=== PATIENT | female | born 1940 | race Caucasian/White ===

== ENCOUNTER 2016-12-01 11:35 | Emergency (ER) | payer MEDICARE, BC ==
[~2016-12-01 11:35] MED LIST: CALCIUM1 TAB.CHEW PO; MULTI VITAMIN1 EACH PO; PHENERGAN25 MG PO; VICODIN 5/1 TAB 5/50 PO
== END 2016-12-01 13:20 | disposition home or self-care (01) ==
LOC: CED 11:35
DX: M17.12 Unilateral primary osteoarthritis, left knee (principal)
CPT/HCPCS: 99283